=== PATIENT | male | born 1960 | race Caucasian/White ===

== ENCOUNTER 2016-06-27 12:39 | Inpatient (IN) | payer MEDICAID, SELFPAY ==
[~2016-06-27] VITALS: Ht 175.3 cm; Wt 84.2 kg
[2016-06-27] MEDS ORDERED: SODIUM CHLORIDE FLUSH 10ML SYR IVF ONE (14:00)
[2016-06-27] MEDS ORDERED: LEVO200T PO (14:41)
[2016-06-27 14:48] LABS: BLOOD UREA NITROGEN 23 mg/dL (7-18)
[2016-06-27 14:52] LABS: HEMOGLOBIN 6.2 g/dL (13.7-18.0)
[2016-06-27 15:00] LABS: ASPARTATE AMINO TRANSFERASE 86 U/L (15-37)
[2016-06-27 15:19] LABS: DIFF TOTAL CELLS COUNTED 100 CELL DIFF
[2016-06-27 15:21] LABS: ANISOCYTOSIS 2+; POLYCHROMASIA 1+
[2016-06-27 15:23] LABS: OVALOCYTES 1+
[2016-06-27 15:26] LABS: VERIFY COUNTS? YES
[2016-06-27] MEDS: SODIUM CHLORIDE 0.9% 1,000 ML IV SCH (16:20)
[2016-06-27] MEDS ORDERED: BISACODYL 10 MG SUPP PR PRN (16:30)
[2016-06-27] MEDS ORDERED: ACETAMINOPHEN 325 MG TABLET PO ONE (16:30)
[2016-06-27] MEDS ORDERED: MORPHINE SULFATE 4 MG/ML, 1ML IVPush PRN (16:30)
[2016-06-27] MEDS ORDERED: HYDROcodone/APAP 5/325 TABLET PO PRN (16:30)
[2016-06-27] MEDS ORDERED: LABETALOL 5MG/ML, 20ML IV PRN (16:30)
[2016-06-27] MEDS ORDERED: POLYETHYLENE GLYCOL 17 GM PACKET PO PRN (16:30)
[2016-06-27] MEDS ORDERED: DOCUSATE 100 MG CAPSULE PO PRN (16:30)
[2016-06-27] MEDS ORDERED: ACETAMINOPHEN 325 MG TABLET PO PRN (16:30)
[2016-06-27] MEDS ORDERED: DIPHENHYDRAMINE 50 MG/ML, 1ML IVPush ONE (16:30)
[2016-06-27] MEDS ORDERED: LORazepam 2 MG/ML, 1ML IVPush PRN (16:30)
[2016-06-27] MEDS ORDERED: FUROSEMIDE 20 MG/2 ML IVPush ONE (16:30)
[2016-06-27] MEDS ORDERED: ONDANSETRON 2MG/ML, 2ML IVP PRN (16:30)
[2016-06-27] MEDS ORDERED: DIPHENHYDRAMINE 50 MG/ML, 1ML ONE (16:40)
[2016-06-27] MEDS ORDERED: ACETAMINOPHEN 325 MG TABLET ONE (16:40)
[2016-06-27 17:12] LABS: IS PT STATUS REG ER OR PRE ER? YES
[2016-06-27 17:16] LABS: TOTAL IRON BINDING CAPACITY 307 mcg/dL (250-450)
[2016-06-27] MEDS ORDERED: ONDANSETRON 2MG/ML, 2ML ONE (17:19)
[2016-06-27 17:41] LABS: HEP B SURF. AB 6.3 mIU/mL (0.0-10.0)
[2016-06-27 17:42] LABS: TRANSFERRIN 236 mg/dL (200-360)
[2016-06-27 17:58] VITALS: BP 148/81
[2016-06-27 18:01] LABS: HEMOGLOBIN 6.2 g/dL (13.7-18.0)
[2016-06-27 18:20] LABS: HEPATITIS C VIRUS ANTIBODY Nonreactive (Nonreactive)
[2016-06-27 18:31] LABS: HIV 1&2 ANTIBODY SCREEN Nonreactive (Nonreactive); HIV-1 p24 ANTIGEN Nonreactive (Nonreactive)
[2016-06-27 20:00] VITALS: BP 128/70
[2016-06-27 20:30] VITALS: BP_SYST 128; BP_SYST 155; BP_DIAS 70; BP_DIAS 74
[2016-06-27 22:48] VITALS: BP 119/65
[2016-06-28] VITALS (7 sets, daily range): BP systolic 125–145; BP diastolic 64–90
[2016-06-28 00:50] LABS: HEMOGLOBIN 7.1 g/dL (13.7-18.0)
[2016-06-28 01:02] LABS: IS PT STATUS REG ER OR PRE ER? NO
[2016-06-28] MEDS: SODIUM CHLORIDE 0.9% 1,000 ML IV SCH (05:39)
[2016-06-28] MEDS ORDERED: LEVOTHYROXINE 200 MCG TABLET PO SCH (06:00)
[2016-06-28 06:02] LABS: HEMOGLOBIN 8.4 g/dL (13.7-18.0)
[2016-06-28 06:06] LABS: ASPARTATE AMINO TRANSFERASE 78 U/L (15-37); BLOOD UREA NITROGEN 26 mg/dL (7-18)
[2016-06-28 06:39] LABS: ANISOCYTOSIS 2+; POLYCHROMASIA 1+
[2016-06-28] MEDS ORDERED: THIAMINE 100MG TABLET PO SCH (09:00)
[2016-06-28] MEDS ORDERED: FOLIC ACID 1 MG TABLET PO SCH (09:00)
[2016-06-28] MEDS ORDERED: CYANOCOBALAMIN 1,000 MCG TABLET PO SCH (09:00)
[2016-06-28] MEDS ORDERED: MULTIVITAMIN 1 TABLET PO SCH (09:00)
[2016-06-28 11:34] LABS: HEMOGLOBIN 8.6 g/dL (13.7-18.0)
== END 2016-06-28 14:39 | disposition left against medical advice (07) | DRG 811 ==
LOC: ED 16:19 → EDIP 16:20 → ED 17:36 → 4EST 18:58
PROVIDERS: ADMIT Internal Medicine; ATTEND Internal Medicine
PROC: 30233N1 Transfusion of Nonautologous Red Blood Cells into Peripheral Vein, Percutaneous Approach (ICD-10-PCS; principal; 2016-06-27)
PROC: 02HV33Z Insertion of Infusion Device into Superior Vena Cava, Percutaneous Approach (ICD-10-PCS; 2016-06-27)
PROC: B5181ZA Fluoroscopy of Superior Vena Cava using Low Osmolar Contrast, Guidance (ICD-10-PCS; 2016-06-27)
PROC: B548ZZA Ultrasonography of Superior Vena Cava, Guidance (ICD-10-PCS; 2016-06-27)
DX: D51.9 Vitamin B12 deficiency anemia, unspecified (principal); N17.0 Acute kidney failure with tubular necrosis; E87.1 Hypo-osmolality and hyponatremia; E03.9 Hypothyroidism, unspecified; D69.6 Thrombocytopenia, unspecified; F12.90 Cannabis use, unspecified, uncomplicated; Z66 Do not resuscitate; F15.10 Other stimulant abuse, uncomplicated; F10.10 Alcohol abuse, uncomplicated; Z53.21 Procedure and treatment not carried out due to patient leaving prior to being seen by health care provider; Z79.899 Other long term (current) drug therapy; Z81.1 Family history of alcohol abuse and dependence; Z91.14 Patient's other noncompliance with medication regimen
CPT/HCPCS: 36415; 36569; 76937; 77001; 80053; 82607; 82728; 82746; 82962; 83540; 83550; 83615; 84425; 84439; 84443; 84466; 84484; 85014; 85018; 85025; 85045; 85610; 85730; 86703; 86705; 86706; 86709; 86803; 86850; 86900; 86923; 87340; 87899; 93005; 96374; 96375; J2405; C1751; G0435; J1200; J1940; J2060; J7030; P9016

== ENCOUNTER 2016-12-01 09:35 | Inpatient (IN) | payer MEDICAID ==
[~2016-12-01] VITALS: Ht 172.7 cm; Wt 74.3 kg
[~2016-12-01 09:35] MED LIST: LEVO200T PO
[2016-12-01] MEDS ORDERED: SODIUM CHLORIDE 0.9% 1,000 ML IV ONE (09:53)
[2016-12-01] MEDS ORDERED: SODIUM CHLORIDE FLUSH 10ML SYR IVF ONE (10:00)
[2016-12-01] MEDS ORDERED: SODIUM CHLORIDE 0.9% 1,000ML IVBOLUS ONE (10:00)
[2016-12-01] MEDS ORDERED: FERR325T18 PO (10:24)
[2016-12-01] MEDS ORDERED: PLEASE ENTER HEIGHT AND WEIGHT MC SCH (10:30)
[2016-12-01 10:39] LABS: HEMOGLOBIN 7.2 g/dL (13.7-18.0)
[2016-12-01 10:41] LABS: HEMATOCRIT 20.8 % (39.2-51.8)
[2016-12-01 11:04] LABS: ANISOCYTOSIS 2+
[2016-12-01 11:05] LABS: POLYCHROMASIA 1+
[2016-12-01 11:06] LABS: MICROCYTOSIS 1+
[2016-12-01 11:08] LABS: LARGE PLATELETS 1+
[2016-12-01 11:09] LABS: OVALOCYTES 1+
[2016-12-01 11:29] LABS: ASPARTATE AMINO TRANSFERASE 57 U/L (15-37); BLOOD UREA NITROGEN 20 mg/dL (7-18)
[2016-12-01 11:30] LABS: IS PT STATUS REG ER OR PRE ER? YES
[2016-12-01] MEDS ORDERED: LORazepam 2 MG/ML, 1ML IVPush ONE (12:00)
[2016-12-01] MEDS ORDERED: LORazepam 2 MG/ML, 1ML ONE (13:09)
[2016-12-01 13:28] VITALS: BP 147/86
[2016-12-01 13:45] VITALS: BP 146/79
[2016-12-01 14:00] VITALS: BP 149/71
[2016-12-01 14:25] VITALS: BP 137/78
[2016-12-01 15:00] VITALS: BP 150/88
[2016-12-01] MEDS ORDERED: BISACODYL 10 MG SUPP PR PRN (16:30)
[2016-12-01] MEDS ORDERED: DOCUSATE 100 MG CAPSULE PO PRN (16:30)
[2016-12-01] MEDS ORDERED: POLYETHYLENE GLYCOL 17 GM PACKET PO PRN (16:30)
[2016-12-01] MEDS ORDERED: ONDANSETRON 2MG/ML, 2ML IVPush PRN (16:30)
[2016-12-01] MEDS ORDERED: ACETAMINOPHEN 325 MG TABLET PO PRN (16:30)
[2016-12-01] MEDS ORDERED: ENOXAPARIN 40 MG/0.4 ML SQ SCH (16:30)
[2016-12-02] MEDS ORDERED: LEVOTHYROXINE 175 MCG TABLET PO SCH (06:00)
== END 2016-12-01 16:52 | disposition left against medical advice (07) | DRG 282 ==
LOC: MERGE 09:35 → EDBD 09:35 → ED 10:42 → EDIP 13:17 → 5SO 14:34
PROVIDERS: ADMIT Internal Medicine; ATTEND Internal Medicine
PROC: 30233N1 Transfusion of Nonautologous Red Blood Cells into Peripheral Vein, Percutaneous Approach (ICD-10-PCS; principal; 2016-12-01)
DX: I21.4 Non-ST elevation (NSTEMI) myocardial infarction (principal); D69.6 Thrombocytopenia, unspecified; D53.9 Nutritional anemia, unspecified; E03.9 Hypothyroidism, unspecified; E53.8 Deficiency of other specified B group vitamins; F10.20 Alcohol dependence, uncomplicated; F41.9 Anxiety disorder, unspecified; K21.9 Gastro-esophageal reflux disease without esophagitis; R79.1 Abnormal coagulation profile; F12.90 Cannabis use, unspecified, uncomplicated; F19.90 Other psychoactive substance use, unspecified, uncomplicated; Z91.040 Latex allergy status; Z91.19 Patient's noncompliance with other medical treatment and regimen
CPT/HCPCS: 36415; 71010; 71275; 80047; 80053; 83880; 84443; 84484; 85025; 85379; 86850; 86870; 86900; 86902; 86922; 86923; 93005; 96361; 96374; J2060; J7030; P9016

== ENCOUNTER 2017-06-01 18:34 | Inpatient (IN) | payer MEDICAID ==
[~2017-06-01] VITALS: Ht 175.3 cm; Wt 78.4 kg
[~2017-06-01 18:34] MED LIST changes: +FERR325T18 PO
[2017-06-01] MEDS ORDERED: ASPIRIN 81 MG TABLET CHEW PO ONE (19:00)
[2017-06-01 19:31] LABS: MEAN CORPUSCULAR HEMOGLOBIN 37.6 pg (27.5-34.5); MEAN CORPUSCULAR VOLUME 110.5 fL (81-97); MEAN PLATELET VOLUME 8.7 fL (7.4-10.4); PLATELET COUNT 107 x10^3/uL (130-400); RED BLOOD COUNT 1.58 x10^6/uL (4.38-5.82); RED CELL DISTRIBUTION WIDTH 17.6 % (9.4-14.8)
[2017-06-01 19:33] LABS: HEMOGRAM NOTE RECHECKED
[2017-06-01 19:38] LABS: ALANINE AMINOTRANSFERASE 48 U/L (12-78); ANION GAP 6 mmol/L (5-15); CALCIUM 8.1 mg/dL (8.5-10.1); CHLORIDE 110 mmol/L (98-107); CREATININE 1.14 mg/dL (0.7-1.3)
[2017-06-01 19:43] LABS: ALKALINE PHOSPHATASE 70 U/L (45-117); BILIRUBIN,TOTAL 1.2 mg/dL (0.2-1.0); TOTAL PROTEIN 7.1 g/dL (6.4-8.2); TROPONIN I < 0.015 ng/mL (0.000-0.045)
[2017-06-01 19:48] LABS: INTERNATIONAL NORMALIZED RATIO 1.04 (0.93-1.1); PROTHROMBIN TIME 10.8 Seconds (9.6-11.5)
[2017-06-01 19:55] LABS: MD YES
[2017-06-01 19:59] LABS: EOS#(MANUAL) 0.03 x10^3/uL (0.0-0.4); EOS% (MANUAL) 1 % (1-7); LYMPH#(MANUAL) 1.63 x10^3/uL (1-3.4); LYMPHS% (MANUAL) 51 % (22-44); SEG#(MANUAL) 1.54 x10^3/uL (1.8-6.8); SEGS% (MANUAL) 48 % (42-75)
[2017-06-01 20:00] LABS: ANISOCYTOSIS 2+; OVALOCYTES 2+; POLYCHROMASIA 1+; TEAR DROPS 1+
[2017-06-01] MEDS ORDERED: SODIUM CHLORIDE FLUSH 10ML SYR IVF ONE (20:00)
[2017-06-01] MEDS ORDERED: SODIUM CHLORIDE 0.9% 1,000ML IVBOLUS ONE (20:00)
[2017-06-01] MEDS ORDERED: LORazepam 2 MG/ML, 1ML IVPush ONE (20:00)
[2017-06-01 20:01] LABS: MICROCYTOSIS 1+
[2017-06-01 20:03] LABS: HYPOCHROMIA 1+; SPHEROCYTES 1+
[2017-06-01 20:04] LABS: <PLATELET ESTIMATE> DECREASED; <PLT MORPHOLOGY> NORMAL PLT MORPH
[2017-06-01 20:05] LABS: HYPERSEG PMNs 1+
[2017-06-01] MEDS ORDERED: LORazepam 2 MG/ML, 1ML ONE (20:15)
[2017-06-01 20:42] LABS: FREE T4 (FREE THYROXINE) 0.79 ng/dL (0.76-1.46)
[2017-06-01] MEDS ORDERED: SODIUM CHLORIDE FLUSH 10ML SYR IVF PRN (21:00)
[2017-06-01 22:50] VITALS: BP 155/80
[2017-06-01] MEDS ORDERED: hydrALAzine 20 MG/ML, 1ML IVPush PRN (23:00)
[2017-06-01] MEDS ORDERED: ONDANSETRON 2MG/ML, 2ML IVPush PRN (23:00)
[2017-06-01] MEDS ORDERED: ENALAPRILAT 1.25 MG/ML, 2ML IVPush PRN (23:00)
[2017-06-01] MEDS ORDERED: DOCUSATE 100 MG CAPSULE PO PRN (23:00)
[2017-06-02] VITALS (11 sets, daily range): BP systolic 114–156; BP diastolic 60–87
[2017-06-02 00:02] LABS: % IRON SATURATION 91 % (20-55); BILIRUBIN, DIRECT 0.3 mg/dL (0.1-0.2); IRON LEVEL 212 mcg/dL (65-175); TOTAL IRON BINDING CAPACITY 232 mcg/dL (250-450)
[2017-06-02 00:09] LABS: ABSOLUTE RETICS # 0.044 x10^6/uL (0.5-1.5); RETICULOCYTE COUNT % 2.76 % (0.5-1.5)
[2017-06-02 00:16] LABS: RED BLOOD COUNT 1.58 x10^6/uL (4.38-5.82)
[2017-06-02 00:29] LABS: BILIRUBIN,INDIRECT 0.8 mg/dL (0.0-2.0); BILIRUBIN,TOTAL 1.1 mg/dL (0.2-1.0); TRANSFERRIN 183 mg/dL (200-360)
[2017-06-02 00:33] LABS: MICROSCOPIC NOT IND
[2017-06-02 00:36] LABS: CULTURE INDICATED? NO
[2017-06-02 00:44] LABS: AMPHETAMINE SCREEN, URINE Positive (Negative); BARBITURATE SCREEN, URINE Negative (Negative); BENZODIAZEPINE SCREEN, URINE Negative (Negative); CANNABINOID SCREEN, URINE Positive (Negative); COCAINE SCREEN, URINE Negative (Negative); METHADONE SCREEN, URINE Negative (Negative); OPIATE SCREEN, URINE Negative (Negative)
[2017-06-02] MEDS: LEVOTHYROXINE 200 MCG TABLET PO SCH (05:08)
[2017-06-02 06:05] LABS: CHLORIDE 113 mmol/L (98-107)
[2017-06-02 06:12] LABS: ALANINE AMINOTRANSFERASE 41 U/L (12-78); ALBUMIN 3.4 g/dL (3.4-5.0); ALKALINE PHOSPHATASE 58 U/L (45-117); ANION GAP 6 mmol/L (5-15); BILIRUBIN,TOTAL 1.2 mg/dL (0.2-1.0); CALCIUM 7.8 mg/dL (8.5-10.1); CHOL/HDL RATIO 3.7; CHOLESTEROL, TOTAL 123 mg/dL (140-239); CREATININE 0.89 mg/dL (0.7-1.3); HDL CHOL % 27 % (26-37); HDL CHOLESTEROL (DIRECT) 33 mg/dL (40-60); LDL CHOLESTEROL,CALCULATED 59 mg/dL (54-169); LDL/HDL RATIO 1.8 (0.5-3.0); TOTAL PROTEIN 6.2 g/dL (6.4-8.2); TRIGLYCERIDES 156 mg/dL (50-200); VLDL CHOLESTEROL 31 mg/dL (0-25)
[2017-06-02 06:20] LABS: MEAN CORPUSCULAR HEMOGLOBIN 35.1 pg (27.5-34.5); MEAN CORPUSCULAR HGB CONC 34.7 g/dL (33.2-36.2); MEAN CORPUSCULAR VOLUME 101.2 fL (81-97); RED BLOOD COUNT 2.22 x10^6/uL (4.38-5.82); RED CELL DISTRIBUTION WIDTH 22.8 % (9.4-14.8)
[2017-06-02 06:46] LABS: MEAN PLATELET VOLUME 8.8 fL (7.4-10.4); PLATELET COUNT 98 x10^3/uL (130-400)
[2017-06-02 06:59] LABS: MD YES
[2017-06-02 07:02] LABS: EOS#(MANUAL) 0.09 x10^3/uL (0.0-0.4); EOS% (MANUAL) 3 % (1-7); LYMPHS% (MANUAL) 55 % (22-44); SEG#(MANUAL) 1.22 x10^3/uL (1.8-6.8); SEGS% (MANUAL) 42 % (42-75)
[2017-06-02 07:03] LABS: <PLATELET ESTIMATE> DECREASED; <PLT MORPHOLOGY> NORMAL PLT MORPH; ANISOCYTOSIS 2+; HYPOCHROMIA 1+; MICROCYTOSIS 1+; OVALOCYTES 1+; POLYCHROMASIA 1+; TEAR DROPS 1+
[2017-06-02] MEDS ORDERED: FERROUS SULFATE 325 MG TABLET PO SCH (08:00)
[2017-06-02] MEDS: CYANOCOBALAMIN 1,000 MCG/ML, 1ML IM SCH (11:01)
[2017-06-02 12:13] LABS: OCCULT BLOOD NEGATIVE (NEGATIVE)
[2017-06-02] MEDS ORDERED: ERGOCALCIFEROL 50,000 UNIT CAPSULE PO SCH (12:30)
[2017-06-02] MEDS: LORazepam 2 MG/ML, 1ML IVPush PRN (20:40)
[2017-06-03 02:00] VITALS: BP 137/77
[2017-06-03] MEDS: LEVOTHYROXINE 200 MCG TABLET PO SCH (05:25)
[2017-06-03 05:47] LABS: MEAN CORPUSCULAR HEMOGLOBIN 35.3 pg (27.5-34.5); MEAN CORPUSCULAR HGB CONC 34.8 g/dL (33.2-36.2); MEAN CORPUSCULAR VOLUME 101.7 fL (81-97); MEAN PLATELET VOLUME 9.2 fL (7.4-10.4); PLATELET COUNT 110 x10^3/uL (130-400); RED BLOOD COUNT 2.25 x10^6/uL (4.38-5.82); RED CELL DISTRIBUTION WIDTH 23.3 % (9.4-14.8)
[2017-06-03 06:02] LABS: MD YES
[2017-06-03 06:05] LABS: ANISOCYTOSIS 2+; EOS#(MANUAL) 0.07 x10^3/uL (0.0-0.4); EOS% (MANUAL) 2 % (1-7); LYMPH#(MANUAL) 1.89 x10^3/uL (1-3.4); LYMPHS% (MANUAL) 54 % (22-44); SEG#(MANUAL) 1.54 x10^3/uL (1.8-6.8); SEGS% (MANUAL) 44 % (42-75)
[2017-06-03 06:06] LABS: HYPOCHROMIA 1+; OVALOCYTES 1+; POLYCHROMASIA 1+
[2017-06-03 06:07] LABS: <PLATELET ESTIMATE> DECREASED; <PLT MORPHOLOGY> NORMAL PLT MORPH; TEAR DROPS 1+
[2017-06-03 08:00] VITALS: BP 163/85
[2017-06-03] MEDS: CYANOCOBALAMIN 1,000 MCG/ML, 1ML IM SCH (09:09)
[2017-06-03 14:00] VITALS: BP 133/78
[2017-06-03] MEDS ORDERED: OMNIPAQUE 350 MG/ML, 100ML BOTTLE ONE (16:12)
[2017-06-03 20:23] VITALS: BP 135/73
[2017-06-03] MEDS: LORazepam 2 MG/ML, 1ML IVPush PRN (20:29)
[2017-06-04 02:36] VITALS: BP 129/75
[2017-06-04] MEDS: LEVOTHYROXINE 200 MCG TABLET PO SCH (05:17)
[2017-06-04 07:20] VITALS: BP 166/80
[2017-06-04] MEDS: CYANOCOBALAMIN 1,000 MCG/ML, 1ML IM SCH (09:07)
[2017-06-04 12:48] VITALS: BP 144/83
[2017-06-04 20:13] VITALS: BP 129/74
[2017-06-04] MEDS: LORazepam 2 MG/ML, 1ML IVPush PRN (21:16)
[2017-06-05 01:44] VITALS: BP 130/72
[2017-06-05] MEDS: LEVOTHYROXINE 200 MCG TABLET PO SCH (05:34)
[2017-06-05 05:56] LABS: MEAN CORPUSCULAR HGB CONC 33.9 g/dL (33.2-36.2); MEAN PLATELET VOLUME 8.9 fL (7.4-10.4); PLATELET COUNT 115 x10^3/uL (130-400); RED BLOOD COUNT 2.44 x10^6/uL (4.38-5.82)
[2017-06-05 06:39] LABS: MD YES; RED CELL DISTRIBUTION WIDTH 22.7 % (9.4-14.8)
[2017-06-05 06:46] LABS: ANISOCYTOSIS 2+; BAND#(MANUAL) 0.12 x10^3/uL; BANDS%(MANUAL) 2 % (0-7); BASOS#(MANUAL) 0.06 x10^3/uL (0-0.1); BASOS% (MANUAL) 1 % (0-1); EOS#(MANUAL) 0.43 x10^3/uL (0.0-0.4); EOS% (MANUAL) 7 % (1-7); HYPOCHROMIA 1+; LYMPH#(MANUAL) 2.32 x10^3/uL (1-3.4); LYMPHS% (MANUAL) 38 % (22-44); MONOS#(MANUAL) 0.31 x10^3/uL (0.3-2.7); MONOS% (MANUAL) 5 % (2-9); NRBC % (MANUAL) 2 % (0-1); OVALOCYTES 1+; POLYCHROMASIA 1+; SEG#(MANUAL) 2.87 x10^3/uL (1.8-6.8); SEGS% (MANUAL) 47 % (42-75); TEAR DROPS 1+
[2017-06-05 06:47] LABS: <PLATELET ESTIMATE> DECREASED; LARGE PLATELETS 1+
[2017-06-05 07:00] VITALS: BP 142/87
[2017-06-05] MEDS ORDERED: FOLIC ACID 1 MG TABLET PO SCH (09:00)
[2017-06-05] MEDS ORDERED: NALOXONE 1 MG/ML, 2ML ONE (10:20)
[2017-06-05] MEDS ORDERED: DIPHENHYDRAMINE 50 MG/ML, 1ML ONE (10:20)
[2017-06-05] MEDS ORDERED: FENTANYL PF 100 MCG/2ML ONE (10:20)
[2017-06-05] MEDS ORDERED: LIDOCAINE 2%, 10ML ONE (10:21)
[2017-06-05 13:37] VITALS: BP 142/58
[2017-06-05] MEDS ORDERED: CYAN10002 IM (15:47)
[2017-06-05] MEDS ORDERED: FOLI-17 PO (15:47)
[2017-06-05] MEDS ORDERED: PNEUMOCOCCAL 23 VACCINE IM-VACC ONE (16:30)
[2017-06-05] MEDS ORDERED: FLU VACC QS2017-18 (36MOS+) UP/PF 0.5 ML IM-VACC ONE (16:30)
[2017-07-03] MEDS ORDERED: CYANOCOBALAMIN 1,000 MCG/ML, 1ML IM SCH (10:30)
== END 2017-06-05 16:56 | disposition home or self-care (01) | DRG 812 ==
LOC: ED 20:32 → EDIP 21:59 → 4WST 22:57
PROVIDERS: ADMIT Internal Medicine; ATTEND Family Medicine
PROC: 30233N1 Transfusion of Nonautologous Red Blood Cells into Peripheral Vein, Percutaneous Approach (ICD-10-PCS; 2017-06-02)
PROC: 07DR3ZX Extraction of Iliac Bone Marrow, Percutaneous Approach, Diagnostic (ICD-10-PCS; principal; 2017-06-05)
DX: D53.9 Nutritional anemia, unspecified (principal); D69.6 Thrombocytopenia, unspecified; B15.9 Hepatitis A without hepatic coma; E03.9 Hypothyroidism, unspecified; E53.8 Deficiency of other specified B group vitamins; F15.90 Other stimulant use, unspecified, uncomplicated; F17.200 Nicotine dependence, unspecified, uncomplicated; F40.240 Claustrophobia; F43.10 Post-traumatic stress disorder, unspecified; J44.9 Chronic obstructive pulmonary disease, unspecified; K44.9 Diaphragmatic hernia without obstruction or gangrene; L40.9 Psoriasis, unspecified; F12.90 Cannabis use, unspecified, uncomplicated; F41.9 Anxiety disorder, unspecified; R21 Rash and other nonspecific skin eruption; R91.1 Solitary pulmonary nodule; F10.10 Alcohol abuse, uncomplicated; R94.31 Abnormal electrocardiogram [ECG] [EKG]; F19.10 Other psychoactive substance abuse, uncomplicated; Z23 Encounter for immunization; Z59.0 Homelessness; Z79.82 Long term (current) use of aspirin; Z91.14 Patient's other noncompliance with medication regimen
CPT/HCPCS: 36415; 36430; 38222; 71045; 71260; 74177; 77012; 80053; 80061; 80307; 81003; 82247; 82248; 82272; 82306; 82607; 82728; 83010; 83036; 83540; 83550; 83615; 83690; 83735; 84155; 84165; 84439; 84443; 84466; 84484; 85025; 85045; 85060; 85097; 85610; 85730; 86704; 86705; 86706; 86708; 86709; 86803; 86850; 86870; 86900; 86902; 86922; 86923; 87340; 87806; 88237; 88264; 88280; 88305; 88311; 88313; 93005; 96361; 96374; J3010; J3490; Q9967; G0475; J1200; J2060; J2310; J3420; J7030; P9016